=== PATIENT | female | born 1960 | race Caucasian/White ===

== ENCOUNTER 2023-04-25 05:55 | Day surgery (SDC) | payer BC ==
[~2023-04-25] VITALS: Ht 162.6 cm; Wt 90.7 kg
[2023-04-25] MEDS ORDERED: ceFAZolin SODIUM 2 GM in D5W 100 ML IV ONE (07:00)
[2023-04-25] MEDS ORDERED: MIDAZOLAM HCL 2 MG/2 ML VIAL (VERSED) ONE (07:34)
[2023-04-25] MEDS ORDERED: fentaNYL CITRATE/PF 100 MCG/2 ML AMP ONE (07:35)
[2023-04-25 07:50] VITALS: O2SAT 97
[2023-04-25] MEDS ORDERED: KETOROLAC TROMETHAMINE 30 MG VIAL ONE ×2 (08:09→09:53)
[2023-04-25] MEDS ORDERED: NS IRRIG SOLN 1000 ML IR ONE (08:09)
[2023-04-25] MEDS ORDERED: PROPOFOL 200MG/ 20ML VIAL (DIPRIVAN) IV ONE (08:09)
[2023-04-25] MEDS ORDERED: LR 1,000 ML IV.SOLN IV ONE (08:09)
[2023-04-25] MEDS ORDERED: SEVOFLURANE 15 MIN GAS INH ONE (08:09)
[2023-04-25] MEDS ORDERED: ONDANSETRON HCL 4 MG/2 ML VIAL ONE ×2 (08:09→09:12)
[2023-04-25] MEDS ORDERED: OXYCODONE/ACETAMINOPHEN 5-325 TABLET PO PRN ×2 (08:30)
[2023-04-25] MEDS ORDERED: ONDANSETRON HCL 4 MG/2 ML VIAL IVP PRN (08:30)
[2023-04-25] MEDS ORDERED: HYDROcodone/ACETAMIN 5-325 MG TAB (NORCO/ VICODIN) PO PRN (08:30)
[2023-04-25] MEDS ORDERED: MEPERIDINE HCL/PF 25 MG/ML DISP.SYRIN ONE ×2 (08:38→09:11)
[2023-04-25] MEDS: MEPERIDINE HCL/PF 25 MG/ML DISP.SYRIN IVP PRN ×2 (08:40→09:11)
[2023-04-25] MEDS ORDERED: OXYCODONE/ACETAMINOPHEN 5-325 TABLET ONE (09:40)
[2023-04-25] MEDS ORDERED: KETOROLAC TROMETHAMINE 30 MG VIAL IM SCH (12:00)
[2023-04-25 12:25] VITALS: BP_SYST 118; PULSE 60; RESP 17
== END 2023-04-25 11:37 | disposition home or self-care (01) ==
LOC: SDS 05:55 → SMU 05:55 → SDS 11:37
PROVIDERS: ATTEND Specialist
DX: N95.0 Postmenopausal bleeding (principal); N80.03 Adenomyosis of the uterus; I10 Essential (primary) hypertension; E78.00 Pure hypercholesterolemia, unspecified; Z88.0 Allergy status to penicillin; Z88.5 Allergy status to narcotic agent; Z79.899 Other long term (current) drug therapy
CPT/HCPCS: 87081; 58558; 88305; 82962; J1885; J3465; J2405; J2704; J3010; J2175; J7060; J7120; C1819